=== PATIENT | male | born 1970 | race Two or more races ===

== ENCOUNTER 2024-08-26 10:47 | Emergency (ER) | payer OTHER ==
[~2024-08-26] VITALS: Ht 182.9 cm; Wt 115.7 kg
[2024-08-26] MEDS ORDERED: AVAPRO300 MG (11:09)
[2024-08-26] MEDS ORDERED: NORVASC10 MG (11:09)
[2024-08-26] MEDS ORDERED: HYDROCHLOROTHIA25 MG (11:09)
[2024-08-26] MEDS ORDERED: ADVIL DUAL ACT1 EACH PO (14:43)
== END 2024-08-26 15:01 | disposition home or self-care (01) ==
LOC: ER 10:50
DX: S39.012A Strain of muscle, fascia and tendon of lower back, initial encounter (principal); W18.39XA Other fall on same level, initial encounter; Y93.89 Activity, other specified; Y92.89 Other specified places as the place of occurrence of the external cause